=== PATIENT | male | born 1950 | race Caucasian/White ===

== ENCOUNTER → 2018-12-21 | Outpatient (CLI) | payer OTHER ==
--- NOTE | 2018-12-21 22:19 | RAD ---
CT head without contrast PQRS statement: CT scans at this facility use dose reduction including either automated exposure control, iterative reconstructions, and /or weight based radiation dosing via mA and kV modification when appropriate to reduce radiation dose to as low as reasonably achievable. HISTORY: Fall, concussion, skull fracture. Comparisons: None available at time of exam. TECHNIQUE: 5 mm axial noncontrast imaging skull base to vertex. 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 No dilation of the third and fourth ventricles. Cerebral periventricular white matter hypoattenuation may represent changes of chronic microvascular disease in a patient of this age. No intracranial hemorrhage, mass or infarction. Imaged orbits, paranasal sinuses, mastoids and bones are unremarkable. IMPRESSION: No acute abnormality. See discussion above. Electronically signed by: Norris Larkin MD (12/21/2018 10:16 PM) [facility]
== END | disposition home or self-care (01) ==
LOC: RAD 19:47
PROVIDERS: ATTEND Emergency Medicine
DX: S02.91XD Unspecified fracture of skull, subsequent encounter for fracture with routine healing (principal); W19.XXXD Unspecified fall, subsequent encounter
CPT/HCPCS: 70450